=== PATIENT | female | born 1975 | race Caucasian/White ===

== ENCOUNTER → 2024-01-20 12:58 | Outpatient (REF) | payer BC, SELFPAY | LOC: WDC 12:58 | PROVIDERS: ATTENDING PHYSICIAN Obstetrics & Gynecology Gynecology; FAMILY PHYSICIAN Internal Medicine | DX: Z12.31 Encounter for screening mammogram for malignant neoplasm of breast (principal) | CPT/HCPCS: 77063; 77067 ==

== ENCOUNTER → 2025-02-03 11:12 | Outpatient (REF) | payer BC, SELFPAY | LOC: HWWDC 11:12 | PROVIDERS: ATTENDING PHYSICIAN Obstetrics & Gynecology Gynecology; FAMILY PHYSICIAN Internal Medicine | DX: Z12.31 Encounter for screening mammogram for malignant neoplasm of breast (principal) | CPT/HCPCS: 77063; 77067 ==